=== PATIENT | female | born 1955 | race Caucasian/White ===

== ENCOUNTER 2017-01-05 08:08 | Day surgery (SDC) | payer BC ==
[~2017-01-05] VITALS: Ht 157.5 cm; Wt 60.3 kg
[2017-01-05] VITALS (8 sets, daily range): BP systolic 136–144; BP diastolic 62–74
[~2017-01-05 08:08] MED LIST: LR 1000ml 1,000 ML IVLG SCH
[2017-01-05] MEDS ORDERED: LR 1000ml 1,000 ML IVLG SCH (08:25)
[2017-01-05] MEDS ORDERED: Norco 7.5mg/325mg tab ORAL PRN (08:30)
[2017-01-05] MEDS ORDERED: Hydromorphone 0.5mg/0.5ml inj IVP PRN (08:30)
[2017-01-05] MEDS ORDERED: oxyCODONE HCL/Acetaminophen 5/325mg ORAL PRN (08:30)
[2017-01-05] MEDS ORDERED: Ketorolac 60mg Inj IV PRN (08:30)
[2017-01-05] MEDS ORDERED: Ketorolac 30mg Inj IV PRN (08:30)
[2017-01-05] MEDS ORDERED: fentaNYL 100 mcg/2 mL IV PRN (08:30)
[2017-01-05] MEDS ORDERED: Atropine Inj 1mg/10ml Syr IV PRN (08:30)
[2017-01-05] MEDS ORDERED: Metoclopramide 10mg/2ml Inj IVP PRN (08:30)
[2017-01-05] MEDS ORDERED: Norco 5mg/325mg tab ORAL PRN (08:30)
[2017-01-05] MEDS ORDERED: Midazolam 2mg/2ml Inj IVP PRN (08:30)
[2017-01-05] MEDS ORDERED: DiphenhydrAMINE 50mg/ml Inj IVP PRN (08:30)
[2017-01-05] MEDS ORDERED: LORazepam Inj 2mg/ml 1ml IV PRN (08:30)
--- NOTE | 2017-01-05 08:34 | Short Stay Surgery H&P ---
History of Present Illness History of Present Illness Chief Complaint Anal pain and constipation with dyspepsia HPI Elizabeth Goss is a 61 year old female who was admitted on for Abdominal Pain/ constipation for screening Patient History Allergies: Uncoded Allergies: penicilin (Allergy, Unknown, 01/05/17) skin rash PAST MEDICAL HISTORY: (1) Hypertension Past Surgeries: Social History: Review of Systems Cardiovascular: Reports: no symptoms Respiratory: Reports: no symptoms Skeletal: Reports: no symptoms Gastrointestinal: Reports: other Genitourinary: Reports: no symptoms Neurologic: Reports: no symptoms Endocrine: Reports: no symptoms Hematologic: Reports: no symptoms Physical Exam Skin: normal HENT: normal Heart: normal Lungs: normal Abdomen: normal Extremities: normal Genitourinary: normal Plan Plan of Care Upper and lower Gi endoscopy Preop Interventions none Summary of Findings See the reports Final Diagnosis: Attestation Are the patient's medical conditions optimized for surgery? Attestation Response: yes JOY CLARKE Jan 05, 2017 08:34
--- NOTE | 2017-01-05 08:35 | Pre-Procedure Note/Attestation ---
Pre-Procedure Note/Attestation Complete Prior to Procedure Planned Procedure: left Procedure Narrative: Endscopic examination of the GI tract Indications for Procedure Pre-Operative Diagnosis: R/O Colitis /Peptic ulcer, Hemorrhoids Attestation I attest that I discussed the nature of the procedure; its benefits; risks and complications; and alternatives (and the risks and benefits of such alternatives ), prior to the procedure, with the patient (or the patient's legal b2b sales representative). I attest that, if there was a reasonable possibility of needing a blood transfusion, the patient (or the patient's legal b2b sales representative) was given the [facility] standardized written summary, pursuant to the Kelvin Bassam Blood Safety Act ([place] Health and Safety Code # 1645, as amended). I attest that I re-evaluated the patient just prior to the surgery and that there has been no change in the patient's H&P, except as documented below: VINCE,SAID Jan 05, 2017 08:35
--- NOTE | 2017-01-05 08:35 | Pre-Procedure Note/Attestation ---
Pre-Procedure Note/Attestation Complete Prior to Procedure Planned Procedure: left Procedure Narrative: Endscopic examination of the GI tract Indications for Procedure Pre-Operative Diagnosis: R/O Colitis /Peptic ulcer, Hemorrhoids Attestation I attest that I discussed the nature of the procedure; its benefits; risks and complications; and alternatives (and the risks and benefits of such alternatives ), prior to the procedure, with the patient (or the patient's legal career services representative). I attest that, if there was a reasonable possibility of needing a blood transfusion, the patient (or the patient's legal career services representative) was given the [facility] standardized written summary, pursuant to the Kelvin Bassam Blood Safety Act ([place] Health and Safety Code # 1645, as amended). I attest that I re-evaluated the patient just prior to the surgery and that there has been no change in the patient's H&P, except as documented below: VINCE,SAID Jan 05, 2017 08:35
--- NOTE | 2017-01-05 08:35 | Pre-Procedure Note/Attestation ---
Pre-Procedure Note/Attestation Complete Prior to Procedure Planned Procedure: left Procedure Narrative: Endscopic examination of the GI tract Indications for Procedure Pre-Operative Diagnosis: R/O Colitis /Peptic ulcer, Hemorrhoids Attestation I attest that I discussed the nature of the procedure; its benefits; risks and complications; and alternatives (and the risks and benefits of such alternatives ), prior to the procedure, with the patient (or the patient's legal telesales representative). I attest that, if there was a reasonable possibility of needing a blood transfusion, the patient (or the patient's legal telesales representative) was given the [facility] standardized written summary, pursuant to the Kelvin Bassam Blood Safety Act ([place] Health and Safety Code # 1645, as amended). I attest that I re-evaluated the patient just prior to the surgery and that there has been no change in the patient's H&P, except as documented below: VINCE,SAID Jan 05, 2017 08:35
[2017-01-05] MEDS ORDERED: LOSARTAN-HCTZ1 EAC1 ORAL (08:39)
[2017-01-05] MEDS ORDERED: AMLODIPINE BESYL5 MG ORAL (08:39)
[2017-01-05] MEDS ORDERED: SIMVASTATIN20 MG ORAL (08:39)
[2017-01-05] MEDS ORDERED: Lidocaine 1% MPF 10mg/ml 5ml ONE (08:45)
[2017-01-05] MEDS ORDERED: Alfentanil 2ml Inj ONE (08:45)
[2017-01-05] MEDS ORDERED: Midazolam 2mg/2ml Inj ONE (08:45)
[2017-01-05] MEDS ORDERED: Propofol 200mg/20ml IV ONE (08:45)
[2017-01-05] MEDS ORDERED: LR 1000ml ONE (08:45)
--- NOTE | 2017-01-05 08:56 | Anethesia Preoperative Eval ---
Anesthesia Pre-op PMH/ROS General Date of Evaluation: Jan 05, 2017 Time of Evaluation: 08:41 Anesthesiologist: Ruma ASA Score: ASA 3 Mallampati Score Class I : Soft palate, uvula, fauces, pillars visible Class II: Soft palate, uvula, fauces visible Class III: Soft palate, base of uvula visible Class IV: Only hard plate visible Mallampati Classification: Class II Surgeon: Chitra Diagnosis: Abd Pain Surgical Procedure: EGD/Colonoscopy Anesthesia History: none Family History: no anesthesia problems Allergies: Uncoded Allergies: penicilin (Allergy, Unknown, 01/05/17) skin rash Medications: see eMAR Past Medical History Cardiovascular: Reports: HTN, other - HL Gastrointestinal/Genitourinary: Reports: other - Hemorrhoids HEENT: Reports: glaucoma - Bilateral PSxH Narrative: C/S X4 Anesthesia Pre-op Phys. Exam Physician Exam Last Vital Signs Date Time Temp Pulse Resp B/P (MAP) Pulse Ox O2 Delivery O2 Flow Rate FiO2 01/05/17 08:43 98.1 75 20 142/74 100 Room Air Constitutional: NAD Neurologic: CN 2-12 intact Cardiovascular: RRR Respiratory: CTA Gastrointestinal: S/NT/ND Airway Exam Mallampati Score: Class II MO: full ROM: limited Teeth: intact Anesthesia Pre-op A/P Risk Assessment & Plan Assessment: ASA 3 Plan: GA Status Change Before Surgery: Jama Steele MD Jan 05, 2017 08:56
--- NOTE | 2017-01-05 09:09 | Immediate Post-Op Evaluation ---
Immediate Post-Op Evalulation Immediate Post-Op Evalulation Procedure: EGD/Colonoscopy Date of Evaluation: Jan 05, 2017 Time of Evaluation: 09:42 IV Fluids: 600 LR Blood Products: 0 Estimated Blood Loss: 1 Urinary Output: 0 Blood Pressure Systolic: 130 Blood Pressure Diastolic: 77 Pulse Rate: 83 Respiratory Rate: 16 O2 Sat by Pulse Oximetry: 100 Temperature (Fahrenheit): 97.9 Pain Score (1-10): 1 Nausea: No Vomiting: No Complications 0 Patient Status: awake, reacts, patent, none Hydration Status: adequate Jama Hendrix MD Jan 05, 2017 09:09
--- NOTE | 2017-01-05 09:10 | 48 Hour Post Anesthesia Eval ---
Post Anesthesia Evaluation Procedure: EGD/Colonoscopy Date of Evaluation: Jan 05, 2017 Time of Evaluation: 09:42 Blood Pressure Systolic: 137 0: 73 Pulse Rate: 67 Respiratory Rate: 18 Temperature (Fahrenheit): 98.2 O2 Sat by Pulse Oximetry: 100 Airway: patent Nausea: No Vomiting: No Pain Intensity: 1 Hydration Status: adequate Cardiopulmonary Status: Stable Mental Status/LOC: patient returned to baseline Follow-up Care/Observations: 0 Post-Anesthesia Complications: 0 Follow-up care needed: ready to discharge Jama Hendrix MD Jan 05, 2017 09:10
--- NOTE | 2017-01-05 09:24 | Endoscopy Procedure Note ---
Endoscopy Procedure Note Indication for Procedure: Abdominal pains, positive stool for blood Procedures Performed: EGD - Mild gastritis with antral erosions/superficial ulcerations, biopsied. 1/2 Cm submucosal lesion compatible with liomyoma in mid gastric area posterior wall biopsied, colonoscopy - Significantly redundant left colon. Numerous diverticular lesion in descending and transverse colon. Interal hemorrhoids. Specimen: yes Pt Tolerated Procedure Well: Yes Estimated Blood Loss: none Anesthesiologist: Dr. Perez Anesthesia: moderate sedation Medication Given: see anesthesia record Implant(s) used?: No 50 yrs or older w/o bx or poly: Yes 10yrs. F/U not recommended: Yes If not recommended, why?: Med reason:<3 yrs.: System Reason:<3 yrs.: Last colonoscopy >= to 3yrs: No JOY CLARKE Jan 05, 2017 09:24
--- NOTE | 2017-01-05 09:25 | Discharge Instructions ---
Discharge Instructions Discharge Instructions Follow up with: See the doctor in office after 2 weeks For Congestive Heart Failure Reminder Report to your physician any weight gain of 5 pounds or more in one week. VINCE,JOY Jan 05, 2017 09:25
--- NOTE | 2017-01-05 19:15 | Procedure Note ---
DATE OF PROCEDURE: 01/05/2017 PROCEDURE: Esophagogastroduodenoscopy with biopsy. PREOPERATIVE DIAGNOSES: Abdominal pain, epigastric pain, positive blood in the stool. POSTOPERATIVE DIAGNOSES: 1. Mild generalized gastritis as the biopsy was taken per random from gastric body. 2. Incidental finding 0.5 cm submucosal lesion, midbody of the stomach posterior wall consistent with possible underlying leiomyoma, biopsied. 3. Multiple superficial gastric erosions in the antral area, biopsied. MEDICATION USED: Per Dr. Hendrix. INSTRUMENT: GIF Olympus upper GI video endoscope. DESCRIPTION OF PROCEDURE: The patient after arriving endoscopy unit was told about risks and benefits of the procedure, which she accepted and signed informed consent. She was then put on the left lateral decubitus position. After adequate IV sedation, the scope was gently passed through the cricopharyngeal area, was lodged into the upper esophagus and gradually advanced towards gastroesophageal junction. The entire length of the esophagus looked normal. No evidence of varices, inflammatory process, ulceration, stricture, exudate, etc. was found. GE junction also looked normal without any evidence of Kirby's or hiatal hernia. At this time, the scope was advanced into the stomach. Gastric cavity was distended with insufflation of air. Gradually, the areas of the fundus and the body and the antrum were examined. An incidental finding was an 0.5 cm submucosal lesion, which is completely normal with coverage of gastric mucosa over it consistent with possible underlying leiomyoma of the stomach, which looked benign and it was biopsied. The rest of the examination including the antral area revealed evidence of multiple erosions in the prepyloric area with some evidence of gastritis consistent with antritis. One biopsy from the erosions was obtained. Subsequently, scope was passed into the duodenal bulb. First and second portion of duodenum were found to be completely normal. At this time, the scope was pulled back into the stomach. Gastric cavity was examined in a retrograde fashion, which did not reveal any other pathologies other than what was stated earlier. Finally, the procedure was terminated. The patient tolerated the procedure well. Said Doug Buenrostro DR: LAYLA JOB#: [id number] CC:
--- NOTE | 2017-01-05 19:30 | Operative Note - Dictated ---
DATE OF OPERATION: 01/05/2017 SURGEON: Gareth Buenrostro M.D. PROCEDURE: Total colonoscopy. PREOPERATIVE DIAGNOSES: Positive occult blood in the stool and anal irritation and constipation. POSTOPERATIVE DIAGNOSES: 1. Significantly highly redundant left colon. 2. Diverticulosis of the transverse and descending colon. 3. Internal hemorrhoids of mild degree, class 1-2, otherwise normal study up to the base of the cecum as examined. MEDICATIONS USED: Per Jama Hendrix M.D. INSTRUMENT: GIF Olympus videocolonoscope. DESCRIPTION OF PROCEDURE: The patient, after arriving in endoscopy unit, was told about risks and benefits of the procedure, which she accepted and signed informed consent. She was then put on the left lateral decubitus position. After adequate IV sedation, the scope was gently passed through the anal area, which revealed evidence of hemorrhoidal tag and a retroflexion maneuver, which was applied in the rectal area, revealed evidence of minimal internal hemorrhoids along with hypertrophy of anal papillae. At this time, the scope was gradually advanced into the left colon, which was highly redundant and significant amount of time was spent to pass through this tortuous left colon, which was covering numerous diverticular lesions. Finally, the scope reached towards the splenic flexure. From there, it was guided into the transverse colon, which revealed other numerous diverticular lesions. However, there was no any evidence of polyps, tumors, inflammatory process, stricture, ulceration, etc. At this time, the scope was gradually advanced toward the hepatic flexure. From there, it was guided into the right colon all the way to the base of the cecum. All these areas remained to be normal without any evidence of any abnormality. The colon cleanup was adequate and at this time within 6 minutes, the scope was gradually pulled out and same areas of the ascending, transverse, and descending colon were re-examined very carefully and that did not reveal any other abnormalities other than what was stated earlier. Finally, the patient tolerated the procedure well and left the endoscopy room in a good condition. Gareth Buenrostro M.D. DR: LAYLA JOB#: [id number] CC:
[2017-01-19] MEDS ORDERED: LEVOFLOXACIN500 MG ORAL (15:07)
[2017-01-19] MEDS ORDERED: METRONIDAZOLE500 MG ORAL (15:07)
== END 2017-01-05 10:50 | disposition home or self-care (01) ==
LOC: GAS 08:08
DX: K57.30 Diverticulosis of large intestine without perforation or abscess without bleeding (principal); K64.8 Other hemorrhoids; K29.70 Gastritis, unspecified, without bleeding; I10 Essential (primary) hypertension; Z88.0 Allergy status to penicillin; K92.1 Melena; E78.5 Hyperlipidemia, unspecified; K29.50 Unspecified chronic gastritis without bleeding; B96.81 Helicobacter pylori [H. pylori] as the cause of diseases classified elsewhere
CPT/HCPCS: 43239; 45378; J2250; J2704; J3490; J7120; 94003; 94150

== ENCOUNTER 2017-01-20 07:09 | Day surgery (SDC) | payer BC ==
[~2017-01-20] VITALS: Ht 157.5 cm; Wt 61.2 kg
[2017-01-20] VITALS (9 sets, daily range): BP systolic 126–151; BP diastolic 58–71
--- NOTE | 2017-01-20 06:43 | Anethesia Preoperative Eval ---
Anesthesia Pre-op PMH/ROS General Date of Evaluation: Jan 20, 2017 Time of Evaluation: 06:42 Anesthesiologist: jayme ASA Score: ASA 3 Mallampati Score Class I : Soft palate, uvula, fauces, pillars visible Class II: Soft palate, uvula, fauces visible Class III: Soft palate, base of uvula visible Class IV: Only hard plate visible Mallampati Classification: Class II Surgeon: bj Diagnosis: submucosal lesion Surgical Procedure: eus Anesthesia History: none Social History: smoking - nonsmoker Family History: no anesthesia problems Allergies: Uncoded Allergies: penicilin (Allergy, Unknown, 01/05/17) skin rash Medications: see eMAR Past Medical History Cardiovascular: Reports: HTN HEENT: Reports: glaucoma Musculoskeletal/Integumentary: Reports: OA Anesthesia Pre-op Phys. Exam Physician Exam Last Vital Signs Date Time Temp Pulse Resp B/P (MAP) Pulse Ox O2 Delivery O2 Flow Rate FiO2 01/20/17 07:26 97.8 77 18 135/65 99 Room Air Constitutional: NAD Neurologic: CN 2-12 intact Cardiovascular: RRR Respiratory: CTA Gastrointestinal: S/NT/ND Airway Exam Mallampati Score: Class II MO: full Neck: supple TMD: 2fb ROM: full Teeth: intact Anesthesia Pre-op A/P Risk Assessment & Plan Assessment: asa3 Plan: mac Status Change Before Surgery: No Pre-Antibiotics Drug: KELLY Foreman Jan 20, 2017 06:43
[~2017-01-20 07:09] MED LIST changes: +AMLODIPINE BESYL5 MG ORAL; +LEVOFLOXACIN500 MG ORAL; +LOSARTAN-HCTZ1 EAC1 ORAL; -LR 1000ml 1,000 ML IVLG SCH; +METRONIDAZOLE500 MG ORAL; +SIMVASTATIN20 MG ORAL
[2017-01-20] MEDS ORDERED: Propofol 200mg/20ml IV ONE (09:00)
[2017-01-20] MEDS ORDERED: Lidocaine 1% MPF 10mg/ml 5ml ONE (09:00)
--- NOTE | 2017-01-20 09:09 | Pre-Procedure Note/Attestation ---
Pre-Procedure Note/Attestation Complete Prior to Procedure Planned Procedure: not applicable Procedure Narrative: egd/eus Indications for Procedure Pre-Operative Diagnosis: gastric submucosal lesion Attestation I attest that I discussed the nature of the procedure; its benefits; risks and complications; and alternatives (and the risks and benefits of such alternatives ), prior to the procedure, with the patient (or the patient's legal professional healthcare representative). I attest that, if there was a reasonable possibility of needing a blood transfusion, the patient (or the patient's legal professional healthcare representative) was given the [facility] standardized written summary, pursuant to the Kelvin Bassam Blood Safety Act ([place] Health and Safety Code # 1645, as amended). I attest that I re-evaluated the patient just prior to the surgery and that there has been no change in the patient's H&P, except as documented below: NICOLLE SANCHEZ Jan 20, 2017 09:09
--- NOTE | 2017-01-20 09:11 | Short Stay Surgery H&P ---
History of Present Illness History of Present Illness Chief Complaint gastric sub mucosal lesion HPI Elizabeth Goss is a 61 year old female who was admitted on for Submucosa Lesion Patient History Allergies: Uncoded Allergies: penicilin (Allergy, Unknown, 01/05/17) skin rash PAST MEDICAL HISTORY: (1) Diverticulitis (2) Hypertension Past Surgeries: Social History: Medication History Scheduled Amlodipine Besylate* (Amlodipine Besylate*), 2.5 MG ORAL DAILY, (Reported) Levofloxacin (Levofloxacin*), 750 MG ORAL DAILY, (Reported) Losartan/Hydrochlorothiazide (Losartan-Hctz 100-25 Mg Tab), 1 TAB ORAL DAILY, ( Reported) Metronidazole* (Flagyl*), 500 MG ORAL QID, (Reported) Simvastatin (Zocor), 40 MG ORAL BEDTIME, (Reported) Review of Systems Cardiovascular: Reports: no symptoms Respiratory: Reports: no symptoms Skeletal: Reports: no symptoms Genitourinary: Reports: no symptoms Neurologic: Reports: no symptoms Endocrine: Reports: no symptoms Hematologic: Reports: no symptoms Physical Exam Vital Signs Last Vital Signs Date Time Temp Pulse Resp B/P (MAP) Pulse Ox O2 Delivery O2 Flow Rate FiO2 01/20/17 07:26 97.8 77 18 135/65 99 Room Air Skin: normal HENT: normal Heart: normal Lungs: normal Abdomen: normal Extremities: normal Plan Plan of Care egd/EUS Final Diagnosis: Attestation Are the patient's medical conditions optimized for surgery? Attestation Response: yes NICOLLE SANCHEZ Jan 20, 2017 09:11
--- NOTE | 2017-01-20 09:30 | Endoscopy Procedure Note ---
Endoscopy Procedure Note Indication for Procedure: gastric sub mucosal lesion Procedures Performed: EGD, other - EUS Operative Findings/Diagnosis: same Specimen: none Pt Tolerated Procedure Well: Yes Estimated Blood Loss: none Anesthesiologist: braulio Anesthesia: MAC Implant(s) used?: No 50 yrs or older w/o bx or poly: Not Applicable 10yrs. F/U not recommended: Not Applicable NICOLLE SANCHEZ Jan 20, 2017 09:30
[2017-01-20] MEDS ORDERED: Heplock Flush 100 units/ml 3 ml syr ONE (09:42)
[2017-01-20] MEDS ORDERED: DiphenhydrAMINE 50mg/ml Inj IVP PRN (10:30)
[2017-01-20] MEDS ORDERED: Atropine Inj 1mg/10ml Syr IV PRN (10:30)
[2017-01-20] MEDS ORDERED: fentaNYL 100 mcg/2 mL IV PRN (10:30)
[2017-01-20] MEDS ORDERED: Midazolam 2mg/2ml Inj IVP PRN (10:30)
--- NOTE | 2017-01-20 12:25 | Immediate Post-Op Evaluation ---
Immediate Post-Op Evalulation Immediate Post-Op Evalulation Procedure: egd/eus Date of Evaluation: Jan 20, 2017 Time of Evaluation: 10:35 IV Fluids: 450ml 0.9ns Blood Products: none Estimated Blood Loss: negligible Blood Pressure Systolic: 144 Blood Pressure Diastolic: 58 Pulse Rate: 80 Respiratory Rate: 18 O2 Sat by Pulse Oximetry: 100 Temperature (Fahrenheit): 98.4 Pain Score (1-10): 0 Nausea: No Vomiting: No Complications none Patient Status: awake, reacts, patent Hydration Status: adequate Drug: KELLY Foreman Jan 20, 2017 12:25
--- NOTE | 2017-01-20 12:26 | 48 Hour Post Anesthesia Eval ---
Post Anesthesia Evaluation Procedure: egd/eus Date of Evaluation: Jan 20, 2017 Time of Evaluation: 10:37 Blood Pressure Systolic: 140 0: 58 Pulse Rate: 80 Respiratory Rate: 18 Temperature (Fahrenheit): 98.4 O2 Sat by Pulse Oximetry: 100 Airway: patent Nausea: No Vomiting: No Pain Intensity: 0 Hydration Status: adequate Cardiopulmonary Status: stable Mental Status/LOC: patient returned to baseline Post-Anesthesia Complications: none Follow-up care needed: N/A KELLY QUEZADA Jan 20, 2017 12:26
--- NOTE | 2017-01-20 18:00 | Procedure Note ---
DATE OF PROCEDURE: 01/20/2017 REFERRING PHYSICIAN: Gareth Buenrostro M.D. SURGEON: Renny Wood M.D. PROCEDURE: Upper endoscopy and endoscopic ultrasound with fine needle aspiration. ANESTHESIA: Per Dr. Nguyen. INSTRUMENT: Olympus adult flexible upper endoscope, EUS radial and linear scopes. INDICATION: Gastric submucosal lesion. The procedure, risks, benefits, and possible consequences, including hemorrhage, aspiration, perforation and infection, and alternative treatments, were explained to the patient/legal guardian by Dr. Renny Wood and the patient/legal guardian understood and accepted these risks. DESCRIPTION OF PROCEDURE: After informed consent was obtained and the patient was adequately sedated, first Olympus upper endoscope was advanced from mouth into the second portion of the duodenum and retroflexion was performed of the stomach. The patient had evidence of irregular Z-line. In the stomach, there was diffuse gastritis with recent diagnosis of H. pylori infection recently, on treatment. In the antrum of the stomach in the prepyloric region, at about 3 o'clock position around the lesser curvature, there was a lesion, submucosal, roughly measured about 1.5 cm in size, had a erosion on the top. No central cavitation. This lesion was submucosal. At this time, the upper endoscope was retrieved and EUS scope was introduced. There was a 1.5-cm submucosal lesion in that area, hypoechoic. No evidence of any cystic formation in the middle for the look, however, suspicious for carcinoid. At this time, the EUS radial scope was removed and EUS linear scope was introduced. A 22-gauge core needle was used to pass two needle passes through this lesion and get sample. This was very challenging because of the location of it. Every time we tried to put a needle, the lesion will move away. Finally, we were able to do a very good pass. The second pass was a very good one. We gave the tissue to the pathologist and at this point, the procedure was terminated. SUMMARY OF FINDINGS: About 1.5 cm hypoechoic lesion in the antrum of the stomach in the prepyloric region at about 3 o'clock position, highly suspicious given the look of it for carcinoid. It is hypoechoic, submucosal, and suspicious for carcinoid. RECOMMENDATIONS: 1. Follow FNA results. 2. Based on the biopsy results, we will recommend further management. I want to thank, Dr. Gareth Buenrostro, for this kind referral. Renny Wood M.D. DR: Skyla JOB#: [id number] CC: Gareth Buenrostro M.D.; Fax#: [phone]
--- NOTE | 2017-01-24 15:49 | Cardiology Report ---
APPROVED REPORT EKG Measurement Heart [id number] Normal sinus rhythm Cannot rule out Anterior infarct, age undetermined Abnormal ECG
== END 2017-01-20 11:45 | disposition home or self-care (01) ==
LOC: GAS 07:09
DX: K31.9 Disease of stomach and duodenum, unspecified (principal); I10 Essential (primary) hypertension; K57.90 Diverticulosis of intestine, part unspecified, without perforation or abscess without bleeding; M19.90 Unspecified osteoarthritis, unspecified site; Z88.0 Allergy status to penicillin
CPT/HCPCS: 43238; 93005; J1642; J2704; 94003; 94150

== ENCOUNTER 2017-02-02 09:06 | Outpatient (CLI) | payer BC ==
[2017-02-02 09:23] VITALS: BP 127/64
--- NOTE | 2017-02-02 10:17 | GI Progress Note ---
Assessment/Plan Problems: (1) Gastrointestinal stromal tumor (GIST) ICD Codes: C49.A0 - Gastrointestinal stromal tumor, unspecified site SNOMED: [id number] Status: stable Status Narrative Seen with Dr. Wood. Assessment/Plan EUS-FNA SUMMARY OF FINDINGS reviewed with patient: 1.5 cm gastric GIST RECOMMENDATIONS: Discussed with patient her options. repeat EGD/EUS in 1 year Subjective Gastrointestinal/Abdominal: Reports: no symptoms Objective Last 24 Hour Vital Signs Date Time Temp Pulse Resp B/P (MAP) Pulse Ox O2 Delivery O2 Flow Rate FiO2 02/02/17 09:23 98.6 82 16 127/64 General Appearance: WD/WN, no apparent distress, alert Cardiovascular: normal rate Respiratory/Chest: normal breath sounds, no respiratory distress Abdominal Exam: normal bowel sounds, non tender, soft Extremities: normal range of motion, non-tender Bryanna Watts N.P. Feb 02, 2017 10:17
== END 2017-02-02 10:03 | disposition home or self-care (01) ==
LOC: PAN 09:06
DX: C49.A0 Gastrointestinal stromal tumor, unspecified site (principal)
CPT/HCPCS: 99211